=== PATIENT | male | born 1985 | race Caucasian/White ===

== ENCOUNTER → 2020-04-21 10:47 | Outpatient (CLI) | payer OTHER, SELFPAY ==
[2020-04-21 12:53] LABS: Hematocrit 42.9 % (40-54); Hemoglobin 13.6 g/dL (13.0-16.5); Mean Corp Hgb Conc 31.7 g/dL (32-36); Mean Corpuscular Hgb 26.6 pg (27.0-32.0); Mean Platelet Vol. 9.1 fl (6.2-12.0); POSITIVE COUNT YES; POSITIVE MORPHOLOGY YES; Platelet Count 811 K/mm3 (150-450); RBC Distribution Width CV 13.3 % (11.6-14.6); Red Blood Count 5.11 M/mm3 (4.6-6.2); White Blood Count 13.3 K/mm3 (4.4-11.0)
[2020-04-21 12:59] LABS: Differential Indicated MANUAL DIFF
[2020-04-21 13:00] LABS: ALB/GLOB Ratio 0.5 RATIO (0.9-2.4); AST(SGOT) 54 U/L (15-37); Alanine Aminotransfer ALT/SGPT 68 U/L (16-61); Albumin, Serum 2.4 g/dL (3.2-5.0); Alkaline Phosphatase 120 U/L (45-117); Anion Gap 7 (5-15); BUN 8 mg/dL (7-18); BUN/Creat Ratio 9.8 RATIO (10-20); Calcium,Total 8.3 mg/dL (8.5-10.1); Chloride 95 mmol/L (98-107); Cholesterol 149 mg/dL (200); Creatinine, Serum 0.82 mg/dL (0.70-1.30); EST Glomerular Filtration Rate 113 mL/min (>60); Est Glom Filt Rate - Afr Amer 137 mL/min (>60); Globulin 5.2 g/dL (2.2-4.2); Glucose 329 mg/dL (74-106); High Density Lipoprotein 21 mg/dL; Potassium 3.4 mmol/L (3.5-5.1); Protein, Total 7.6 g/dL (6.4-8.2); Sodium Level 134 mmol/L (136-145); Thyroid Stim Hormone (TSH) 1.21 uIU/mL (0.358-3.74); Triglycerides 198 mg/dL; Very Low Density Lipoprotein 40 mg/dL (5-40)
[2020-04-21 13:26] LABS: Eosinophil 5 % (0-5); Lymphocyte 28 % (19-41); Monocyte 2 % (0-10); Myelocyte 1 (0-0); Neutrophil-Band 3 % (0-5); Neutrophil-Segmented 61 % (47-70); Platelet Estimate MKD INC (ADEQ); Reactive Lymphocyte 1+; Total Cells Counted 100 (MANUAL DIFF)
[2020-04-21 13:28] LABS: Absolute Lymphocyte Count 3.72 X10^3/uL (0.83-4.51); Absolute Neutrophil Count 8.5 X10^3/uL (2.0-7.7)
[2020-04-22 09:33] LABS: Pathologist Review Reviewed
== END ==
PROVIDERS: PCP Family Medicine; Referring Provider Family Medicine; Visit Provider Family Medicine
DX: E66.01 Morbid (severe) obesity due to excess calories (principal)
CPT/HCPCS: 36415; 80053; 80061; 84443; 85025

== ENCOUNTER → 2020-04-26 | Outpatient (CLI) | payer OTHER, SELFPAY ==
[2020-04-26 16:10] LABS: Hepatitis B Surface Antibody Non-Reactive; Hepatitis B Surface Antigen Non-Reactive (Nonreactive); Hepatitis C Antibody Non-Reactive (Nonreactive)
== END | disposition home or self-care (01) ==
LOC: MTLAB 11:39
PROVIDERS: PCP Family Medicine; Referring Provider Family Medicine; Visit Provider Family Medicine
DX: R79.89 Other specified abnormal findings of blood chemistry (principal)
CPT/HCPCS: 36415; 86706; 86803; 87340

== ENCOUNTER → 2020-05-11 10:43 | Outpatient (CLI) | payer OTHER, SELFPAY ==
[2020-05-11 12:18] LABS: Absolute Neutrophil Count 6.8 X10^3/uL (2.0-7.7); Basophil# 0.11 X10^3/uL; Eosinophil# 0.45 X10^3/uL; Hematocrit 44.6 % (40-54); Hemoglobin 14.4 g/dL (13.0-16.5); Lymphocyte % 28.6 % (19-41); Mean Corp Hgb Conc 32.3 g/dL (32-36); Mean Corpuscular Hgb 27.1 pg (27.0-32.0); Mean Corpuscular Volume 83.8 fL (80-94); Mean Platelet Vol. 9.4 fl (6.2-12.0); Monocyte# 0.58 X10^3/uL; Monocyte% 5.2 % (0-10); NRBC Flagged by Analyzer 0 % (0-5); Neutrophil # 6.83 X10^3/uL (2.7-7.7); Neutrophil % 60.9 % (47-70); Platelet Count 478 K/mm3 (150-450); RBC Distribution Width CV 14.4 % (11.6-14.6); RBC Distribution Width SD 43.2 fl (35.1-43.9); Red Blood Count 5.32 M/mm3 (4.6-6.2); White Blood Count 11.2 K/mm3 (4.4-11.0)
== END ==
PROVIDERS: PCP Family Medicine; Referring Provider Family Medicine; Visit Provider Family Medicine
DX: D47.3 Essential (hemorrhagic) thrombocythemia (principal)
CPT/HCPCS: 36415; 85025

== ENCOUNTER → 2020-08-10 09:06 | Outpatient (CLI) | payer OTHER, SELFPAY ==
[2020-08-10 10:01] LABS: Absolute Lymphocyte Count 3.51 X10^3/uL (0.83-4.51); Absolute Neutrophil Count 6.3 X10^3/uL (2.0-7.7); Basophil# 0.09 X10^3/uL; Basophil% 0.8 % (0-1); Eosinophil# 0.31 X10^3/uL; Eosinophils% 2.9 % (0-5); Hematocrit 43.4 % (40-54); Hemoglobin 13.9 g/dL (13.0-16.5); Lymphocyte # 3.51 X10^3/ul (0.83-4.51); Lymphocyte % 32.7 % (19-41); Mean Corpuscular Hgb 26.6 pg (27.0-32.0); Monocyte# 0.54 X10^3/uL; NRBC Flagged by Analyzer 0 % (0-5); Neutrophil # 6.27 X10^3/uL (2.7-7.7); Neutrophil % 58.3 % (47-70); Platelet Count 552 K/mm3 (150-450); RBC Distribution Width CV 14.7 % (11.6-14.6); RBC Distribution Width SD 44.4 fl (35.1-43.9); Red Blood Count 5.23 M/mm3 (4.6-6.2); White Blood Count 10.8 K/mm3 (4.4-11.0)
[2020-08-10 10:34] LABS: Hemoglobin A1c 6.8 % (3.8-5.6)
[2020-08-10 10:35] LABS: Microalbumin:Creatinine Ratio 58.6 mg/g CRE (<30 mg/g CRE)
[2020-08-10 10:36] LABS: ALB/GLOB Ratio 0.8 RATIO (0.9-2.4); AST(SGOT) 21 U/L (15-37); Alanine Aminotransfer ALT/SGPT 28 U/L (16-61); Albumin, Serum 3.5 g/dL (3.2-5.0); Alkaline Phosphatase 84 U/L (45-117); Anion Gap 6 (5-15); BUN 9 mg/dL (7-18); Calcium,Total 9.1 mg/dL (8.5-10.1); Chloride 103 mmol/L (98-107); Cholesterol 135 mg/dL (200); Creatinine, Serum 0.69 mg/dL (0.70-1.30); EST Glomerular Filtration Rate 137 mL/min (>60); Est Glom Filt Rate - Afr Amer 166 mL/min (>60); Globulin 4.5 g/dL (2.2-4.2); Glucose 139 mg/dL (74-106); High Density Lipoprotein 33 mg/dL; Potassium 3.7 mmol/L (3.5-5.1); Sodium Level 138 mmol/L (136-145); Triglycerides 126 mg/dL; Very Low Density Lipoprotein 25 mg/dL (5-40)
== END ==
PROVIDERS: PCP Family Medicine; Referring Provider Family Medicine; Visit Provider Family Medicine
DX: E11.65 Type 2 diabetes mellitus with hyperglycemia (principal)
CPT/HCPCS: 36415; 80053; 80061; 82043; 82570; 83036; 85025

== ENCOUNTER 2021-01-09 13:12 | Emergency (ER) | payer OTHER, SELFPAY ==
[2021-01-09 13:13] VITALS: BP 144/99; PULSE 113; RESP 18; TEMP 37.7; O2SAT 97; BMI 48.9
[2021-01-09 14:57] VITALS: PULSE 113; O2SAT 98
--- NOTE | 2021-01-09 15:16 | EDS_ITS ---
HPI History of Present Illness Chief Complaint: Lower Extremity Injury Detail of Chief Complaint: T-max 102.9, red rash, feeling ill Informant: patient and spouse/S.O. Onset/Context/Timing Onset: Days (Saturday evening) Context: Sudden Onset Timing: Continuous Quality: Generalized weakness, fever and red rash anterior right leg Current Severity: Mild Maximum Severity: Moderate Worsened by: Nothing Relieved by: Nothing Associated Symptoms Associated Symptoms: No history of rigors or orthostatic symptoms Narrative Narrative: Patient is a 35-year-old male with history of type 2 diabetes who states his last A1c was 6.1 who presents with T-max 102.9 without rigors. He does report rash that he noted Saturday evenings gotten worse. States area is warm and red. He denies orthostatic symptoms. He does have type 2 diabetes. He denies polyuria, polydipsia or nocturia. He has no antibiotic allergies. He states he was placed on lisinopril because of proteinuria. Prior similar symptoms: No Recent Illness/Hospitalization: No PFSH PFSH Medical History (Updated 01/09/21 @ 17:[address] Josh kSy MD) Diabetes Home Medications clindamycin HCl [Cleocin HCl] 300 mg PO Q6H #28 capsule 01/09/21 [Rx Last Taken Unknown] lisinopril 5 mg PO DAILY 01/09/21 [History Last Taken Unknown] metformin 500 mg PO BID 01/09/21 [History Last Taken Unknown] Allergy/AdvReac Type Severity Reaction Status Date / Time No Known Allergies Allergy Verified 01/09/21 15:07 Surgical History H/O right knee surgery Social History (Updated 01/09/21 @ 15:[address] Josh Sky MD) household members: spouse and children Smoking Status: Never smoker substance use type: does not use ROS ROS ED Constitutional Constitutional ED: Reports fever(s); Denies chills, subjective, sweats or weight loss Eyes Eyes: Denies blurry vision, change in vision or diplopia ENT ENT ED: Denies ear pain, rhinorrhea or sore throat Cardiovascular Cardiovascular: Denies chest pain, orthopnea, palpitations or racing heartbeat Respiratory/Chest Respiratory/Chest: Denies cough, dyspnea, dyspnea on exertion or orthopnea Gastrointestinal Gastrointestinal: Denies abdominal pain, diarrhea, nausea or vomiting Genitourinary Genitourinary ED: Denies dysuria, hematuria or urinary frequency Musculoskeletal Musculoskeletal: Denies arthralgias, back pain, myalgias or neck pain Integumentary Reports rash; Denies abscess or Abrasions Neurologic Neurologic: Denies headache(s) or weakness Endocrine Endocrinology: Denies polydipsia, polyphagia or polyuria Hematologic/Lymphatic Hematologic/Lymphatic: Denies easy bleeding or easy bruising Allergic/Immunologic Allergic/Immunologic ED: Denies mouth swelling, tongue swelling or urticaria EXAM Physical Exam Const Vital Signs: 01/09/21 13:13 01/09/21 14:57 Temperature 99.9 F H Temperature Source Temporal Pulse Rate 113 H 113 H Respiratory Rate 18 Blood Pressure 144/99 H Blood Pressure Mean 114 Pulse Ox 97 98 Oxygen Delivery Method Room Air Room Air Positive well nourished, well developed and obese; Negative for cachectic, contractures or unkempt General Appearance ED: well developed and NAD; Negative for unkempt, cachectic, contractures, cyanotic, diaphoretic or pallor Nutritional Appearance: obese; Negative for cachectic HEENT Reports dry mucous membranes HEENT Narrative: Head is atraumatic normocephalic. Nares patent. Ears normal. Mouth ED: Yes dry mucous membranes Mouth: dry mucous membranes Eyes PERRL and EOMs intact bilaterally General Eye ED: Negative for pale conjunctiva or scleral icterus Neck no lymphadenopathy, supple and no JVD Resp normal respiratory effort and clear to auscultation bilaterally Cardio regular rhythm, S1 normal heart sound, S2 normal heart sound and no murmurs Rate: tachycardic GI normal to inspection, nondistended, normoactive bowel sounds, non-tender and non-distended Auscultation: normoactive bowel sounds Palpation: soft Extremity Negative for normal to inspection Extremity Narrative: Patient has a warm blanching erythematous rash anterior right leg consistent with cellulitis. There is no lymphangitis. He does have 1 shoddy right inguinal node. There is no tenderness on distribution deep venous system. There is no palpable cords. General Extremety ED: Yes tenderness; Negative for edema General Extremity: Negative for edema Neuro oriented x3 and CN's II-XII intact bilaterally Sensorium / Orientation: alert Motor Exam: strength 5/5 throughout Psych mental status grossly normal Appearance: Negative for unkempt Skin No no rashes or lesions noted and no wounds Skin Narrative: Cellulitis anterior right leg General Skin Exam: Negative for jaundice or pallor MDM MDM MDM Narrative Medical decision making narrative: Patient is tachycardic and febrile will initiate sepsis work-up. Patient was treated with Unasyn. Will determine if patient will require inpatient therapy versus outpatient therapy with close follow-up. CBC, comprehensive metabolic panel and lactate were obtained to asse ss for or endorgan dysfunction. Patient and were informed of his results. He does have sepsis. There is no evidence of severe sepsis with organ dysfunction or septic shock. Patient was informed there is a 90 to 95% likelihood that outpatient therapy will be successful. Patient was discharged on clindamycin. Lab Data Attestation: I reviewed the patient's lab results. Labs: Laboratory Results - last 24 hr 01/09/21 01/09/21 01/09/21 15:32 15:32 15:32 WBC 16.1 H RBC 4.98 Hgb 13.6 Hct 40.8 MCV 81.9 MCH 27.3 MCHC 33.3 RDW Std Deviation 41.2 RDW Coeff of Susu 14.0 Plt Count 413 MPV 9.1 Immature Gran % (Auto) 0.700 Neut % (Auto) 80.7 H Lymph % (Auto) 12.7 L [place] % (Auto) 5.4 Eos % (Auto) 0.1 Baso % (Auto) 0.4 Absolute Neuts (auto) 12.9 H Absolute Lymphs (auto) 2.04 Nucleated RBC % 0 Sodium 131 L Potassium 3.3 L Chloride 96 L Carbon Dioxide 28.0 Anion Gap 7 BUN 13 Creatinine 1.11 Estim Creat Clear Calc 85.19 Est GFR (MDRD) Af Amer 96 Est GFR (MDRD) Non-Af 79 BUN/Creatinine Ratio 11.7 Glucose 202 H Lactic Acid 1.9 Calcium 8.8 Total Bilirubin 0.90 AST 15 ALT 27 Alkaline Phosphatase 90 Total Protein 8.2 Albumin 3.1 L Globulin 5.1 H Albumin/Globulin Ratio 0.6 L Discharge Plan Triage Chief Complaint: Lower Extremity Injury ED Provider: Josh Sky Dx/Rx/DC Orders Clinical Impression: Cellulitis of leg, right, Sepsis Prescriptions: New clindamycin HCl [Cleocin HCl] 300 MG capsule 300 mg PO Q6H Qty: 28 RF: 0 No Action lisinopril 5 mg tablet 5 mg PO DAILY RF: 0 metformin 500 mg tablet extended release 24 hr 500 mg PO BID RF: 0 Primary Care Provider: Panchito Shea Referrals: Panchito Shea MD [Primary Care Provider] - 2 Days for wound check Activity Restrictions/Additional Instructions: 1. If you have shaking chills return to the emergency department immediately 2. If your rash extends above your knee return to the emergency department 3. If you develop blisters return to the emergency department immediately Disposition Disposition: Home, Self Care
[2021-01-09] MEDS: 0.9% Normal Saline 1,000 ML 1000 ML IV (15:39)
[2021-01-09 15:56] LABS: Absolute Lymphocyte Count 2.04 X10^3/uL (0.83-4.51); Absolute Neutrophil Count 12.9 X10^3/uL (2.0-7.7); Basophil# 0.07 X10^3/uL; Basophil% 0.4 % (0-1); Eosinophil# 0.01 X10^3/uL; Eosinophils% 0.1 % (0-5); Hematocrit 40.8 % (40-54); Hemoglobin 13.6 g/dL (13.0-16.5); Lymphocyte # 2.04 X10^3/ul (0.83-4.51); Lymphocyte % 12.7 % (19-41); Mean Corp Hgb Conc 33.3 g/dL (32-36); Mean Corpuscular Hgb 27.3 pg (27.0-32.0); Mean Corpuscular Volume 81.9 fL (80-94); Mean Platelet Vol. 9.1 fl (6.2-12.0); Monocyte# 0.87 X10^3/uL; Monocyte% 5.4 % (0-10); NRBC Flagged by Analyzer 0 % (0-5); Neutrophil # 12.94 X10^3/uL (2.7-7.7); Neutrophil % 80.7 % (47-70); Platelet Count 413 K/mm3 (150-450); RBC Distribution Width SD 41.2 fl (35.1-43.9); Red Blood Count 4.98 M/mm3 (4.6-6.2); White Blood Count 16.1 K/mm3 (4.4-11.0)
[2021-01-09 16:06] LABS: ALB/GLOB Ratio 0.6 RATIO (0.9-2.4); AST(SGOT) 15 U/L (15-37); Alanine Aminotransfer ALT/SGPT 27 U/L (16-61); Albumin, Serum 3.1 g/dL (3.2-5.0); Alkaline Phosphatase 90 U/L (45-117); Anion Gap 7 (5-15); BUN 13 mg/dL (7-18); BUN/Creat Ratio 11.7 RATIO (10-20); Calcium,Total 8.8 mg/dL (8.5-10.1); Chloride 96 mmol/L (98-107); Creatinine, Serum 1.11 mg/dL (0.70-1.30); EST Glomerular Filtration Rate 79 mL/min (>60); Est Glom Filt Rate - Afr Amer 96 mL/min (>60); Estimated Creatinine Clearance 85.19 ml/min; Globulin 5.1 g/dL (2.2-4.2); Glucose 202 mg/dL (74-106); Potassium 3.3 mmol/L (3.5-5.1); Protein, Total 8.2 g/dL (6.4-8.2); Sodium Level 131 mmol/L (136-145)
[2021-01-09 16:13] LABS: Lactic Acid 1.9 mmol/L (0.4-1.9)
[2021-01-09 17:59] VITALS: PULSE 105; RESP 16; O2SAT 99
== END 2021-01-09 18:00 | disposition home or self-care (01) ==
PROVIDERS: Emergency Provider Emergency Medicine; PCP Family Medicine
DX: A41.9 Sepsis, unspecified organism (principal); L03.115 Cellulitis of right lower limb; E11.9 Type 2 diabetes mellitus without complications; R80.9 Proteinuria, unspecified; E66.9 Obesity, unspecified; Z79.84 Long term (current) use of oral hypoglycemic drugs; Z79.899 Other long term (current) drug therapy
CPT/HCPCS: 80053; 83605; 85025; 87040; 96361; 96365; 99283; J7030; A4216; J0295

== ENCOUNTER 2021-01-11 13:15 | Emergency (ER) | payer OTHER, SELFPAY ==
[2021-01-11 13:16] VITALS: BP 163/84; PULSE 110; RESP 16; TEMP 35.8; O2SAT 98; BMI 48.5
--- NOTE | 2021-01-11 13:48 | EX.ED.DYSGE1 ---
HPI History of Present Illness Chief Complaint: Wound Check Narrative Narrative: Patient is a 35-year-old male who is seen on Saturday secondary to right lower leg redness and swelling and diagnosed with cellulitis. Patient states he was placed on clindamycin and has been on it now for 2 days. He states that he has had moderate improvement of his redness but felt that he would have greater improvement at this time and therefore comes in for repeat evaluation. He denies any fevers chills chest pain or shortness of breath PFSH PFSH Medical History Diabetes Home Medications clindamycin HCl [Cleocin HCl] 300 mg PO Q6H #28 capsule 01/09/21 [Rx Last Taken Unknown] lisinopril 5 mg PO DAILY 01/09/21 [History Last Taken Unknown] metformin 500 mg PO BID 01/09/21 [History Last Taken Unknown] clindamycin HCl [Cleocin HCl] 300 mg PO Q6H 7 Days #28 cap 01/11/21 [Rx Last Taken Unknown] Allergy/AdvReac Type Severity Reaction Status Date / Time No Known Allergies Allergy Verified 01/11/21 13:16 Surgical History H/O right knee surgery Social History (Updated 01/09/21 @ 15:[address] Josh Sky MD) household members: spouse and children Smoking Status: Never smoker substance use type: does not use ROS ROS ED Constitutional Constitutional ED: Denies chills or fever(s) ENT ENT ED: Denies sore throat Cardiovascular Cardiovascular: Denies chest pain Respiratory/Chest Respiratory/Chest: Denies cough or dyspnea Gastrointestinal Gastrointestinal: Denies abdominal pain, diarrhea, nausea or vomiting Genitourinary Genitourinary ED: Denies dysuria Musculoskeletal Musculoskeletal: Reports other Details: Positive right leg pain ; Denies myalgias Integumentary Reports rash Neurologic Neurologic: Denies headache(s) Hematologic/Lymphatic Hematologic/Lymphatic: Denies easy bleeding or easy bruising EXAM Physical Exam Const Vital Signs: 01/11/21 13:16 Temperature 96.5 F L Temperature Source Temporal Pulse Rate 110 H Respiratory Rate 16 Blood Pressure 163/84 H Blood Pressure Mean 110 Pulse Ox 98 Oxygen Delivery Method Room Air Positive well nourished and well developed General Appearance ED: well developed Eyes PERRL and EOMs intact bilaterally Neck supple Resp normal respiratory effort and clear to auscultation bilaterally Cardio regular rate and regular rhythm Extremity Extremity Narrative: Right lower extremity is neurovascularly intact. There is mild asymmetric swelling to the right lower leg compared to left. With this patient has asymmetric erythema and warmth to the anterior aspect of the middle to distal third of the right lomeli. There is no obvious lymphangitic streaking or abscess formation. Negative Homans' sign bilaterally Neuro oriented x3 and CN's II-XII intact bilaterally Sensorium / Orientation: alert Motor Exam: strength 5/5 throughout Psych mental status grossly normal Skin Skin Narrative: Soft tissue changes to the right lower leg as documented above MDM MDM MDM Narrative Medical decision making narrative: Patient presented to the ER afebrile and in no acute respiratory distress. He is only been on his antibiotic for approximately 48 hours and does have improvement of the redness on exam which was outlined at his previous visit. He also has no obvious abscess or lymphangitic streaking noted. We discussed that we could repeat blood work at this time and even perform an ultrasound but that my concern for DVT is low as the erythema is to the anterior aspect of the leg and not the posterior and he has no calf tenderness. Also with the improvement over the last 48 hours with the antibiotic I do not feel that he is progressing to sepsis or having failure of outpatient therapy. Patient states that as the redness has improved and my concern for these events is low he does not want to perform any further testing at this time and therefore feels better with the reassurance and will be discharged at this time. Discharge Plan Triage Chief Complaint: Wound Check ED Provider: Kenneth Baez Dx/Rx/DC Orders Clinical Impression: Cellulitis of leg, right Instructions: ED Cellulitis Prescriptions: New clindamycin HCl [Cleocin HCl] 300 mg capsule 300 mg PO Q6H 7 Days Qty: 28 RF: 0 No Action lisinopril 5 mg tablet 5 mg PO DAILY RF: 0 metformin 500 mg tablet extended release 24 hr 500 mg PO BID RF: 0 clindamycin HCl [Cleocin HCl] 300 MG capsule 300 mg PO Q6H Qty: 28 RF: 0 Primary Care Provider: Panchito Shea Referrals: Panchito Shea MD [Primary Care Provider] - Disposition Disposition: Home, Self Care
== END 2021-01-11 14:00 | disposition home or self-care (01) ==
PROVIDERS: Emergency Provider Emergency Medicine; PCP Family Medicine
DX: L03.115 Cellulitis of right lower limb (principal); E11.9 Type 2 diabetes mellitus without complications; Z79.84 Long term (current) use of oral hypoglycemic drugs; Z79.899 Other long term (current) drug therapy
CPT/HCPCS: 99282

== ENCOUNTER 2021-04-21 13:35 | Emergency (ER) | payer OTHER, SELFPAY ==
[2021-04-21 13:37] VITALS: BP 164/104; PULSE 77; RESP 18; TEMP 36.1; O2SAT 99; BMI 46.2
--- NOTE | 2021-04-21 15:08 | EDS_ITS ---
HPI History of Present Illness Chief Complaint: Numb/Ting Narrative Narrative: 35-year-old male presenting with mild trapezius pain and radiation of pain down to his thumb. He states this has been intermittent over the last couple of weeks. He states is worse by turning his head to the right. Patient denies any trauma to the neck. Patient states that he has traveled a lot recently and been on planes. He denies any chest pain, palpitations, shortness of breath. PFSH PFS Medical History Diabetes Pinched nerve in neck Home Medications lisinopril 5 mg PO DAILY 01/09/21 [History Last Taken Unknown] metformin 500 mg PO BID 01/09/21 [History Last Taken Unknown] naproxen [Naprosyn] 500 mg PO BID PRN #20 tab 04/21/21 [Rx Last Taken Unknown] rosuvastatin 10 mg PO QHS 04/21/21 [History Last Taken Unknown] tizanidine 4 mg PO Q8H PRN #20 cap 04/21/21 [Rx Last Taken Unknown] Allergy/AdvReac Type Severity Reaction Status Date / Time No Known Allergies Allergy Verified 04/21/21 13:39 Surgical History H/O right knee surgery Social History household members: spouse and children Smoking Status: Never smoker substance use type: does not use ROS ROS ED Constitutional Constitutional ED: Denies chills or fever(s) Eyes Eyes: Denies blurry vision or change in vision ENT ENT ED: Denies rhinorrhea or sore throat Cardiovascular Cardiovascular: Denies chest pain Respiratory/Chest Respiratory/Chest: Denies cough or dyspnea Gastrointestinal Gastrointestinal: Denies abdominal pain, nausea or vomiting Genitourinary Genitourinary ED: Denies dysuria or hematuria Musculoskeletal Musculoskeletal: Reports other Details: Left trapezius pain Integumentary Denies Abrasions or rash Neurologic Neurologic: Reports other Details: Numbness and tingling into the left thumb fr om shoulder. Psychiatric Psychiatric: Denies anxiety or depression EXAM Physical Exam Const Vital Signs: 04/21/21 13:37 Temperature 97 F L Temperature Source Temporal Pulse Rate 77 Respiratory Rate 18 Blood Pressure 164/104 H Blood Pressure Mean 124 Pulse Ox 99 Oxygen Delivery Method Room Air Positive obese General Appearance ED: NAD Nutritional Appearance: obese HEENT Reports moist mucous membranes normocephalic and atraumatic Eyes PERRL Neck full ROM and supple Neck Narrative: Tenderness to palpation over the left trapezius. Head turning to the right exacerbates the patient's symptoms. General: Negative for tenderness Chest Wall inspection of chest normal Resp normal respiratory effort and clear to auscultation bilaterally Cardio regular rate and regular rhythm Extremity normal to inspection; Negative for full ROM General Extremety ED: Negative for edema General Extremity: Negative for edema Psych mental status grossly normal Skin Lesions: no lesions Rashes: no rashes MDM MDM MDM Narrative Medical decision making narrative: Patient presenting with symptoms of cervical radiculopathy. Based on his symptoms I believe is likely in the C6 dermatome. He has no neck pain but complains of pain in the lateral trapezius on the left. His symptoms are worsened by head turning to the right. Patient states he was concerned that his friends told him to come in for a cardiac work-up because of the arm pain but I do believe this is a radiculopathy and he does not need any cardiac work-up. Patient has follow-up with a massage therapist and this therapist is in coordination with a physician. Patient will be given prescription for Naprosyn and muscle relaxers. I do not believe he needs any acute imaging here. Impression: 1. Radiculopathy Lab Data Attestation: I reviewed the patient's lab results. Discharge Plan Triage Chief Complaint: Numb/Ting ED Provider: Tonny Pedraza Dx/Rx/DC Orders Instructions: ED Radiculopathy, Cervical Prescriptions: New naproxen [Naprosyn] 500 mg tablet 500 mg PO BID PRN (Reason: pain) Qty: 20 RF: 0 tizanidine 4 mg capsule 4 mg PO Q8H PRN (Reason: muscle spasticity) Qty: 20 RF: 0 No Action lisinopril 5 mg tablet 5 mg PO DAILY RF: 0 metformin 500 mg tablet extended release 24 hr 500 mg PO BID RF: 0 rosuvastatin 10 mg tablet 10 mg PO QHS RF: 0 Primary Care Provider: Panchito Shea Referrals: Panchito Shea MD [Primary Care Provider] - Disposition Disposition: Home, Self Care
== END 2021-04-21 15:29 | disposition home or self-care (01) ==
PROVIDERS: Emergency Provider Student in an Organized Health Care Education/Training Program; PCP Family Medicine; Visit Provider Student in an Organized Health Care Education/Training Program
DX: M54.12 Radiculopathy, cervical region (principal); E11.9 Type 2 diabetes mellitus without complications; Z79.84 Long term (current) use of oral hypoglycemic drugs; Z79.1 Long term (current) use of non-steroidal anti-inflammatories (NSAID); Z79.899 Other long term (current) drug therapy; E66.9 Obesity, unspecified
CPT/HCPCS: 99282

== ENCOUNTER 2021-04-22 08:04 | Emergency (ER) | payer OTHER, SELFPAY ==
[2021-04-22 08:05] VITALS: BP 162/117; PULSE 72; RESP 20; TEMP 36.6; O2SAT 99; BMI 47.0
--- NOTE | 2021-04-22 08:25 | EDS_ITS ---
HPI History of Present Illness Chief Complaint: Other, Pain/Inj Detail of Chief Complaint: Left neck pain radiating down to his left thumb. Informant: patient and spouse/S.O. Onset/Context/Timing Onset: Today and Weeks Context: Gradual Onset Timing: Continuous Current Severity: Severe Maximum Severity: Severe Narrative Narrative: 35 old male history of prediabetes on Metformin. No prior head or neck surgery. For last 3 weeks he has had increasing neck discomfort with radiation down his left arm to his left thumb. Yesterday was seen in the emergency department was felt to be a cervical radiculopathy. He was started on a muscle relaxant and anti-inflammatory. Says the pain just got worse yesterday and primarily this morning and he came back in. He denies any weakness. He denies any loss of range of motion. He has had no trauma. No fever. No chest pain. No shortness of breath. Prior similar symptoms: Yes Recent Illness/Hospitalization: No PFSH PFS Medical History Diabetes Pinched nerve in neck Home Medications lisinopril 5 mg PO DAILY 01/09/21 [History Last Taken Unknown] metformin 500 mg PO BID 01/09/21 [History Last Taken Unknown] naproxen [Naprosyn] 500 mg PO BID PRN #20 tab 04/21/21 [Rx Last Taken Unknown] rosuvastatin 10 mg PO QHS 04/21/21 [History Last Taken Unknown] tizanidine 4 mg PO Q8H PRN #20 cap 04/21/21 [Rx Last Taken Unknown] hydrocodone-acetaminophen [Vicodin HP] 1 tab PO Q4H PRN 5 Days #20 tab 04/22/21 [Rx Last Taken Unknown] prednisone 40 mg PO DAILY 10 Days #20 tab 04/22/21 [Rx Last Taken Unknown] Allergy/AdvReac Type Severity Reaction Status Date / Time No Known Allergies Allergy Verified 04/22/21 08:07 Surgical History H/O right knee surgery Social History household members: spouse and children Smoking Status: Never smoker substance use type: does not use ROS ROS ED ROS Narrative Denies recent illness. Review of Systems ROS Unobtainable: Denies due to encephalopathy Constitutional Constitutional ED: Denies fever(s) Eyes Eyes: Denies change in vision ENT ENT ED: Denies ear pain or rhinorrhea Cardiovascular Cardiovascular: Denies chest pain or palpitations Respiratory/Chest Respiratory/Chest: Denies cough or dyspnea Gastrointestinal Gastrointestinal: Denies abdominal pain, diarrhea, nausea or vomiting Genitourinary Genitourinary ED: Denies dysuria Musculoskeletal Musculoskeletal: Denies myalgias Integumentary Denies rash Neurologic Neurologic: Denies headache(s) Psychiatric Psychiatric: Denies depression Endocrine Endocrinology: Denies polyuria Allergic/Immunologic Allergic/Immunologic ED: Denies urticaria EXAM Physical Exam Narrative Exam Narrative: 35-year-old male complaining of pain. Vital signs are stable with blood pressure is elevated 162/117. Pulse 72. Pulse is 9 9% on room air no hypoxia. He is afebrile. He does not look septic or toxic. He is literally lying reverse on the bed supine with his head resting where his feet normally would rest. He says the most comfortable position he can get in with his left arm up in the air. HEENT exam unremarkable. Neck nontender. Trachea midline. Lungs clear to auscultation bilaterally. Heart regular rhythm no murmur. Chest wall nontender. Abdomen obese with soft nontender normal bowel sounds no peritoneal signs. Moving all 4 extremities. Full range of motion. 5 of 5 clinical appeals reviewer strength bilaterally. Normal sensation. 5 out of 5 dorsi plantar flexion intact. Normal sensation in both upper and lower extremities. Back nontender. He has normal clinical appeals reviewer strength. In his left hand. Const Vital Signs: 04/22/21 08:05 04/22/21 08:12 Temperature 97.9 F Temperature Source Temporal Pulse Rate 72 Respiratory Rate 20 H Respiratory Effort Normal Non-Labored Respiratory Pattern Normal Blood Pressure 162/117 H Blood Pressure Mean 132 Pulse Ox 99 Oxygen Delivery Method Room Air Positive well nourished, well developed and obese; Negative for cachectic, contractures or unkempt General Appearance ED: well developed and NAD; Negative for unkempt, cachectic, contractures, cyanotic, diaphoretic or pallor Nutritional Appearance: obese; Negative for cachectic HEENT Reports moist mucous membranes Negative for trauma or tenderness Eyes PERRL and EOMs intact bilaterally General Eye ED: Negative for pale conjunctiva or scleral icterus Neck no lymphadenopathy, supple and no JVD General: Negative for tenderness Chest Wall inspection of chest normal and palpation of chest normal Resp normal respiratory effort and clear to auscultation bilaterally Effort and Inspection: Negative for pain with movement Auscultation: Negative for rales, rhonchi or wheezes Cardio regular rate, regular rhythm, S1 normal heart sound, S2 normal heart sound and no murmurs GI normal to inspection, nondistended, normoactive bowel sounds, non-tender, non- distended and no masses Inspection: Negative for abdominal distention Auscultation: normoactive bowel sounds Palpation: soft; Negative for tender, guarding or rebound tenderness present Back/Spine no CVA tenderness General Back: Negative for CVA tenderness Cervical Spine: Negative for cervical spine tenderness Thoracic Spine / Upper Back: Negative for thoracic spinal tenderness or paraspinal muscle tenderness Extremity normal to inspection General Extremety ED: Negative for edema or tenderness General Extremity: Negative for edema Neuro oriented x3, CN's II-XII intact bilaterally and no sensory deficits noted Sensorium / Orientation: alert; Negative for orientation impaired, lethargic or stuporous Motor Exam: strength 5/5 throughout Psych mental status grossly normal Appearance: Negative for unkempt Attitude: No agitated Mood & Affect: Negative for depressed, anxious or tearful Skin no rashes or lesions noted, no wounds and No skin turgor normal General Skin Exam: Negative for elasticity normal, jaundice or pallor MDM MDM MDM Narrative Medical decision making narrative: 35-year-old male with neck pain radiating down on his left thumb consistent with a C6 cervical radiculopathy. I explained to both he and his the lab work would not be of any significant benefit nor with a plain x-ray. He will need a follow-up MRI if this continues. He has been to be treated with p.o. steroids here and IV Dilaudid and Zofran. Trying to relieve his discomfort. Repeat exam at 10:20 patient is feeling much better his pain is much improved. He will be discharged home with Vicodin for pain. Follow-up with his primary care physician because most likely will need an outpatient MRI. He currently has normal strength and sensation in his left upper extremity. There is no signs of cord compression. Discharge Plan Triage Chief Complaint: Other, Pain/Inj ED Provider: Nikko Alberts Dx/Rx/DC Orders Clinical Impression: Acute neck pain, Cervical radiculopathy Instructions: Radiculopathy Cervical Prescriptions: New hydrocodone-acetaminophen [Vicodin HP] 10-300 mg tablet 1 tab PO Q4H PRN (Reason: pain) 5 Days Qty: 20 RF: 0 prednisone 20 mg tablet 40 mg PO DAILY 10 Days Qty: 20 RF: 0 No Action lisinopril 5 mg tablet 5 mg PO DAILY RF: 0 metformin 500 mg tablet extended release 24 hr 500 mg PO BID RF: 0 rosuvastatin 10 mg tablet 10 mg PO QHS RF: 0 naproxen [Naprosyn] 500 mg tablet 500 mg PO BID PRN (Reason: pain) Qty: 20 RF: 0 tizanidine 4 mg capsule 4 mg PO Q8H PRN (Reason: muscle spasticity) Qty: 20 RF: 0 Primary Care Provider: Panchito Shea Referrals: Panchito Shea MD [Primary Care Provider] - As soon as possible Activity Restrictions/Additional Instructions: Follow-up with your doctor on Saturday. Clinically we think this is a cervical disc probably a C6 disc with inflammation and impinging on your nerve causing you the pain down your left arm cauda cervical radiculopathy. Vicodin for pain. Plenty of fluids and fiber to prevent constipation. Stool softener as needed. You may need an MRI if this continues. Return to emergency department if significant weakness in your left arm. Only worsening pain. Disposition Disposition: Home, Self Care
[2021-04-22] MEDS: HYDROmorphone 1 MG/ML Syringe IV (08:54)
[2021-04-22] MEDS: predniSONE 20 MG Tablet 60 MG PO (08:55)
[2021-04-22] MEDS: Ondansetron 4 MG/2 ML Vial IV (08:55)
--- NOTE | 2021-04-22 14:20 | ED.RN ---
PT HAVING DIFFICULTY OBTAIN PAIN MED PRESCRIPTION. [facility] HAS NONE IN STOCK. THIS NURSE CONTACTED [facility] IN [place]. THEY HAVE A DIFFERENT DOSE OF THE MEDICATION IN STOCK. DR BOYD NOTIFIED OF THE SAME. DR BOYD TO SEND PRESCRIPTION TO [facility] IN [place]. PT CONTACTED AN NOTIFIED OF THE SAME
== END 2021-04-22 10:43 | disposition home or self-care (01) ==
PROVIDERS: Emergency Provider Emergency Medicine; PCP Family Medicine; Visit Provider Emergency Medicine
DX: M54.12 Radiculopathy, cervical region (principal); E11.9 Type 2 diabetes mellitus without complications; E66.9 Obesity, unspecified; Z79.84 Long term (current) use of oral hypoglycemic drugs; Z79.1 Long term (current) use of non-steroidal anti-inflammatories (NSAID); Z79.52 Long term (current) use of systemic steroids; Z79.899 Other long term (current) drug therapy
CPT/HCPCS: 96374; 96375; 99285; A4216; J2405

== ENCOUNTER 2023-03-15 11:55 | Emergency (ER) | payer BC, SELFPAY ==
[2023-03-15 11:57] VITALS: BP 130/62; PULSE 94; RESP 18; TEMP 37.2; O2SAT 96; BMI 49.1
--- NOTE | 2023-03-15 12:56 | EX.ED.DYSGE1 ---
HPI History of Present Illness Chief Complaint: Abd Pain Detail of Chief Complaint: Abdominal pain, cough, congestion, vomiting Informant: patient Onset/Context/Timing Onset: Days (7 days) Narrative Narrative: Patient presents with 7-day history of URI type illness. He has had fevers and chills along with sore throat, congestion, cough, upper abdominal pain. He states he thought he was getting better but then woke this morning with a temperature of 102 and vomiting. states he really has not eaten in the past 4 days. [facility] Medical History Diabetes Pinched nerve in neck Home Medications lisinopril 5 mg tablet 5 mg PO DAILY 01/09/21 [History Last Taken Unknown] metformin 500 mg tablet,extended release 24 hr 500 mg PO BID 01/09/21 [History Last Taken Unknown] naproxen 500 mg tablet (Naprosyn) 500 mg PO BID PRN pain #20 tabs 04/21/21 [Rx Last Taken Unknown] rosuvastatin 10 mg tablet 10 mg PO QHS 04/21/21 [History Last Taken Unknown] tizanidine 4 mg capsule 4 mg PO Q8H PRN muscle spasticity #20 caps 04/21/21 [Rx Last Taken Unknown] hydrocodone 10 mg-acetaminophen 300 mg tablet (Vicodin HP) 1 tab PO Q4H PRN pain 5 days #20 tabs 04/22/21 [Rx Last Taken Unknown] hydrocodone 10 mg-acetaminophen 325 mg tablet 1 tab PO Q4H PRN pain 5 days #20 tabs 04/22/21 [Rx Last Taken Unknown] prednisone 20 mg tablet 40 mg (2 x 20 mg) PO DAILY 10 days #20 tabs 04/22/21 [Rx Last Taken Unknown] levofloxacin 750 mg tablet 750 mg PO DAILY #4 tabs 03/15/23 [Rx Last Taken Unknown] Allergy/AdvReac Type Severity Reaction Status Date / Time No Known Allergies Allergy Verified 03/15/23 11:56 Surgical History H/O right knee surgery Social History household members: spouse and children Smoking Status: Never smoker substance use type: does not use ROS ROS ED Constitutional Constitutional ED: Reports chills and fever(s) Eyes Eyes: Denies change in vision or discharge from eye(s) ENT ENT ED: Reports sore throat and other Details: Congestion ; Denies discharge from eye(s) or rhinorrhea Cardiovascular Cardiovascular: Denies chest pain or palpitations Respiratory/Chest Respiratory/Chest: Reports cough Gastrointestinal Gastrointestinal: Reports abdominal pain, nausea and vomiting; Denies diarrhea Genitourinary Genitourinary ED: Denies dysuria Musculoskeletal Musculoskeletal: Reports myalgias; Denies back pain or extremity pain Integumentary Denies Abrasions or rash Neurologic Neurologic: Denies headache(s) or weakness Psychiatric Psychiatric: Denies anxiety or depression Allergic/Immunologic Allergic/Immunologic ED: Denies lip swelling or urticaria EXAM Physical Exam Const Vital Signs: 03/15/23 11:57 Temperature 99 F Temperature Source Temporal Pulse Rate 94 Respiratory Rate 18 Blood Pressure 130/62 H Blood Pressure Mean 84 Pulse Ox 96 Oxygen Delivery Method Room Air Positive well nourished and well developed General Appearance ED: well developed HEENT Reports moist mucous membranes Eyes EOMs intact bilaterally Chest Wall inspection of chest normal and palpation of chest normal Resp normal respiratory effort and clear to auscultation bilaterally Cardio regular rate and regular rhythm GI non-tender Auscultation: hypoactive bowel sounds Palpation: soft Extremity normal to inspection Neuro oriented x3 and no sensory deficits noted Motor Exam: strength 5/5 throughout Psych mental status grossly normal Skin no rashes or lesions noted MDM MDM MDM Narrative Medical decision making narrative: IV line established. Labwork obtained to evaluate for leukocytosis, anemia, and electrolyte derangement. Chest x-ray obtained to evaluate for acute lung pathology, cardiac size, or mediastinal abnormality. Swab for COVID, influenza, RSV obtained. Patient given IV fluids, Toradol, and Zofran. History & Record Review Discussion w/independent historian: Patient and Significant other Lab Data Attestation: I reviewed the patient's lab results. Labs: Laboratory Results - last 24 hr 03/15/23 13:20 WBC 13.0 H RBC 4.79 Hgb 12.9 L Hct 38.8 L MCV 81.0 MCH 26.9 L MCHC 33.2 RDW Std Deviation 40.1 RDW Coeff of Susu 13.6 Plt Count 297 MPV 9.5 Immature Gran % (Auto) 0.500 Neut % (Auto) 82.1 H Lymph % (Auto) 13.1 L [place] % (Auto) 3.6 Eos % (Auto) 0.3 Baso % (Auto) 0.4 Absolute Neuts (auto) 10.7 H Absolute Lymphs (auto) 1.71 Nucleated RBC % 0 Sodium 137 Potassium 3.9 Chloride 103 Carbon Dioxide 26.0 Anion Gap 8 BUN 8 Creatinine 0.83 Estim Creat Clear Calc 111.72 Est GFR (MDRD) Af Amer 132 Est GFR (MDRD) Non-Af 109 BUN/Creatinine Ratio 9.6 L Glucose 233 H Calcium 7.9 L Total Bilirubin 0.60 Direct Bilirubin 0.17 AST 51 H ALT 73 H Alkaline Phosphatase 72 Total Protein 7.2 Albumin 3.1 L Globulin 4.1 Radiography Chest X-Ray - ED: 1 View, Read by ED Physician, Chronic Changes and Right Infiltrate Diagnostic Testing: Clinical Impression(s) from Imaging Studies Chest X-Ray 03/15/23 13:40 IMPRESSION: Right lung infiltrate. Electronically Signed: Buck Siegel MD at 13:56 EST , Treatment and Re-Evaluation :: CBC was a white count of 13.0 with 82% neutrophils. Hemoglobin slightly low at 12.9. Chemistry studies significant for glucose of 233. LFTs significant for an AST of 51 and ALT of 73. Portable chest x-ray per my interpretation was a questionable right sided infiltrate. Radiology interpretation is reviewed and does agree patient has a right-sided infiltrate. Swab for COVID, influenza, and RSV is negative. On repeat evaluation patient resting comfortably. Test results discussed with he and . I think he likely had a viral illness that he was getting over and then picked up pneumonia as he did have elevated fever again today. He will be given a course of Levaquin, first dose given here. Return instructions provided. Discharge Plan Triage Chief Complaint: Abd Pain ED Provider: Kalpana Kimball Dx/Rx/DC Orders Clinical Impression: Pneumonia Instructions: ED Pneumonia (Adult) Prescriptions: New levofloxacin 750 mg tablet 750 mg PO DAILY Qty: 4 0RF No Action lisinopril 5 mg tablet 5 mg PO DAILY Patient Comments: take 1 tablet by mouth once daily metformin 500 mg tablet extended release 24 hr 500 mg PO BID rosuvastatin 10 mg tablet 10 mg PO QHS naproxen [Naprosyn] 500 mg tablet 500 mg PO BID PRN (Reason: pain) Qty: 20 0RF tizanidine 4 mg capsule 4 mg PO Q8H PRN (Reason: muscle spasticity) Qty: 20 0RF hydrocodone-acetaminophen [Vicodin HP] 10-300 mg tablet 1 tab PO Q4H PRN (Reason: pain) 5 Days Qty: 20 0RF prednisone 20 mg tablet 40 mg PO DAILY 10 Days Qty: 20 0RF hydrocodone-acetaminophen 10-325 mg tablet 1 tab PO Q4H PRN (Reason: pain) 5 Days Qty: 20 0RF Primary Care Provider: Panchito Shea Referrals: Panchito Shea MD [Primary Care Provider] - 1-2 Weeks Disposition Disposition: Home, Self Care
[2023-03-15] MEDS: Ondansetron 4 MG/2 ML Vial IV (13:27)
[2023-03-15] MEDS: 0.9% Normal Saline (1000mL) 1,000 ML 1000 ML IV (13:27)
[2023-03-15] MEDS: Ketorolac 30 MG/ML Syringe IV (13:27)
[2023-03-15 13:39] LABS: Absolute Lymphocyte Count 1.71 X10^3/uL (0.83-4.51); Absolute Neutrophil Count 10.7 X10^3/uL (2.0-7.7); Basophil# 0.05 X10^3/uL; Basophil% 0.4 % (0-1); Eosinophil# 0.04 X10^3/uL; Eosinophils% 0.3 % (0-5); Hematocrit 38.8 % (40-54); Hemoglobin 12.9 g/dL (13.0-16.5); Lymphocyte # 1.71 X10^3/ul (0.83-4.51); Lymphocyte % 13.1 % (19-41); Mean Corp Hgb Conc 33.2 g/dL (32-36); Mean Corpuscular Hgb 26.9 pg (27.0-32.0); Mean Platelet Vol. 9.5 fl (6.2-12.0); Monocyte# 0.47 X10^3/uL; Monocyte% 3.6 % (0-10); NRBC Flagged by Analyzer 0 % (0-5); Neutrophil # 10.69 X10^3/uL (2.7-7.7); Neutrophil % 82.1 % (47-70); Platelet Count 297 K/mm3 (150-450); RBC Distribution Width CV 13.6 % (11.6-14.6); RBC Distribution Width SD 40.1 fl (35.1-43.9); Red Blood Count 4.79 M/mm3 (4.6-6.2)
--- NOTE | 2023-03-15 13:40 | RAD_ITS ---
STUDY: X-RAY CHEST REASON FOR EXAM: Male, 37 years old. Cough TECHNIQUE: Single AP portable view of the chest. COMPARISON: None. FINDINGS: There is patchy right perihilar and upper lung consolidation. There is no demonstrated pleural abnormality. Normal size heart. Normal mediastinum and radha. Normal visualized pulmonary arteries. Normal visualized aortic arch and descending thoracic aorta. Normal visualized thoracic spine. Normal visualized ribs, clavicles, and shoulders. There is no demonstrated abnormality of the visualized soft tissue structures of the upper abdomen. RAD/Chest 1 View (Portable) IMPRESSION: Right lung infiltrate. Electronically Signed: Buck Siegel MD at 13:56 EST ,
[2023-03-15 13:56] LABS: AST(SGOT) 51 U/L (15-37); Alanine Aminotransfer ALT/SGPT 73 U/L (16-61); Albumin, Serum 3.1 g/dL (3.2-5.0); Alkaline Phosphatase 72 U/L (45-117); Anion Gap 8 (5-15); BUN 8 mg/dL (7-18); BUN/Creat Ratio 9.6 RATIO (10-20); Bilirubin, Direct 0.17 mg/dL (0.00-0.30); Calcium,Total 7.9 mg/dL (8.5-10.1); Chloride 103 mmol/L (98-107); Creatinine, Serum 0.83 mg/dL (0.70-1.30); EST Glomerular Filtration Rate 109 mL/min (>60); Est Glom Filt Rate - Afr Amer 132 mL/min (>60); Estimated Creatinine Clearance 111.72 ml/min; Globulin 4.1 g/dL (2.2-4.2); Glucose 233 mg/dL (74-106); Potassium 3.9 mmol/L (3.5-5.1); Protein, Total 7.2 g/dL (6.4-8.2); Sodium Level 137 mmol/L (136-145)
[2023-03-15] MEDS: levoFLOXacin 750 MG Tablet PO (15:23)
== END 2023-03-15 15:33 | disposition home or self-care (01) ==
PROVIDERS: Emergency Provider Emergency Medicine; PCP Family Medicine; Visit Provider Emergency Medicine
DX: J18.9 Pneumonia, unspecified organism (principal); E11.9 Type 2 diabetes mellitus without complications; Z11.52 Encounter for screening for COVID-19; R11.2 Nausea with vomiting, unspecified; Z79.82 Long term (current) use of aspirin; Z79.899 Other long term (current) drug therapy
CPT/HCPCS: 71045; 80048; 80076; 85025; 87631; 96361; 96374; 96375; 99282; J7030; J2405

== ENCOUNTER → 2024-09-09 | Outpatient (CLI) | payer BC, SELFPAY ==
[2024-09-09 15:46] LABS: Hematocrit 40.6 % (40-54); Hemoglobin 13.5 g/dL (13.0-16.5); Immature Granulocytes Count 0.030 X10^3/uL (0.0-0.0); Mean Corp Hgb Conc 33.3 g/dL (32-36); Mean Corpuscular Volume 82.0 fL (80-94); Mean Platelet Vol. 9.4 fl (6.2-12.0); NRBC Flagged by Analyzer 0 % (0-5); Platelet Count 481 K/mm3 (150-450); RBC Distribution Width CV 13.9 % (11.6-14.6); RBC Distribution Width SD 40.8 fl (35.1-43.9); Red Blood Count 4.95 M/mm3 (4.6-6.2); White Blood Count 10.5 K/mm3 (4.4-11.0)
[2024-09-09 16:16] LABS: Creatinine, Urine (random) 221.00 mg/dL (39.00-259.00); Microalbumin,Random Urine 35.3 mg/L (NO RANGE EST.)
[2024-09-09 16:32] LABS: AST(SGOT) 29 U/L (<=37); Alanine Aminotransfer ALT/SGPT 37 U/L (<=46); Albumin, Serum 4.1 g/dL (3.5-5.0); Alkaline Phosphatase 81 U/L (40-129); Anion Gap 13 (5-15); BUN 12 mg/dL (4-19); BUN/Creat Ratio 15.8 RATIO (10-20); Calcium,Total 9.7 mg/dL (7.6-11.0); Carbon Dioxide 24.1 mmol/L (21.0-32.0); Chloride 100 mmol/L (98-108); Cholesterol 184 mg/dL (<=200); Globulin 3.5 g/dL (2.2-4.2); Glucose 194 mg/dL (70-99); Low Density Lipoprotein Calc. 126 mg/dL; Potassium 4.3 mmol/L (3.3-5.1); Triglycerides 149 mg/dL; Very Low Density Lipoprotein 30 mg/dL (5-40); cholesterol:hdl ratio screen 6.46
== END | disposition home or self-care (01) ==
PROVIDERS: PCP Family Medicine; Referring Provider Family Medicine; Visit Provider Family Medicine
DX: E11.9 Type 2 diabetes mellitus without complications (principal)
CPT/HCPCS: 36415; 80053; 80061; 82043; 82570; 83036; 84443; 85025

== ENCOUNTER → 2025-01-08 | Outpatient (CLI) | payer BC, SELFPAY ==
[2025-01-08 10:39] LABS: Hematocrit 43.4 % (40-54); Hemoglobin 14.5 g/dL (13.0-16.5); Immature Granulocytes Count 0.060 X10^3/uL (0.0-0.0); Mean Corp Hgb Conc 33.4 g/dL (32-36); Mean Corpuscular Volume 81.4 fL (80-94); Mean Platelet Vol. 8.9 fl (6.2-12.0); NRBC Flagged by Analyzer 0 % (0-5); Platelet Count 491 K/mm3 (150-450); RBC Distribution Width CV 14.4 % (11.6-14.6); RBC Distribution Width SD 42.7 fl (35.1-43.9); Red Blood Count 5.33 M/mm3 (4.6-6.2); White Blood Count 11.0 K/mm3 (4.4-11.0)
[2025-01-08 11:05] LABS: AST(SGOT) 18 U/L (<=37); Alanine Aminotransfer ALT/SGPT 19 U/L (<=46); Albumin, Serum 4.3 g/dL (3.5-5.0); Alkaline Phosphatase 83 U/L (40-129); Anion Gap 10 (5-15); BUN 11 mg/dL (4-19); BUN/Creat Ratio 17.7 RATIO (10-20); Calcium,Total 9.5 mg/dL (7.6-11.0); Carbon Dioxide 25.5 mmol/L (21.0-32.0); Chloride 103 mmol/L (98-108); Cholesterol 153 mg/dL (<=200); Globulin 3.8 g/dL (2.2-4.2); Glucose 118 mg/dL (70-99); Low Density Lipoprotein Calc. 102 mg/dL; Potassium 4.1 mmol/L (3.3-5.1); Triglycerides 89 mg/dL; Very Low Density Lipoprotein 18 mg/dL (5-40); cholesterol:hdl ratio screen 4.53
== END | disposition home or self-care (01) ==
LOC: MFPLAB 09:23
PROVIDERS: PCP Family Medicine; Visit Provider Family Medicine
DX: E11.9 Type 2 diabetes mellitus without complications (principal)
CPT/HCPCS: 36415; 80053; 80061; 83036; 85025